=== PATIENT | male | born 1950 | race Caucasian/White ===

== ENCOUNTER 2024-12-10 06:22 | Emergency (ER) | payer OTHER ==
[~2024-12-10] VITALS: Ht 175.3 cm; Wt 74.0 kg
[2024-12-10 06:23] VITALS: O2SAT 98
[2024-12-10 07:32] LABS: BASOPHILS % 0.4 % (0.0-2.0); EOSINOPHILS % 4.1 % (0.0-5.0); HEMATOCRIT. 30.4 % (42.0-52.0); HEMOGLOBIN. 10.1 g/dL (14.0-18.0); LYMPHOCYTES % 41.4 % (20.0-50.0); MEAN CORPUSCULAR HEMOGLOBIN 31.1 pg (28.0-32.0); MEAN CORPUSCULAR HGB CONC 33.4 g/dL (31.0-37.0); MEAN CORPUSCULAR VOLUME 93.2 fL (80.0-94.0); MEAN PLATELET VOLUME 7.1 fl (7.4-10.4); NEUTROPHILS % 46.1 % (40.0-76.0); PLATELET 138 x1000/uL (130-400); RED BLOOD CELL COUNT 3.26 mill/uL (4.7-6.1); RED CELL DISTRIBUTION WIDTH 17.4 % (11.6-14.6); WHITE BLOOD COUNT 3.7 x1000/uL (4.5-11.0)
[2024-12-10] MEDS: SODIUM CHLORIDE 0.9% 1,000 ML IV ONE (07:40)
[2024-12-10 07:46] LABS: CALCIUM 8.7 mg/dL (8.7-10.4); CARBON DIOXIDE 28 mEq/L (21-32); CHLORIDE 108 mEq/L (98-107); POTASSIUM 3.9 mEq/L (3.5-5.1); SODIUM 143 mEq/L (136-145)
[2024-12-10 07:51] LABS: CREATININE 0.9 mg/dL (0.6-1.3); GLUCOSE 103 mg/dL (70-105)
[2024-12-10 07:52] LABS: TROPONIN I HIGH SENSITIVITY 40 ng/L (3.0-53); UREA NITROGEN BLOOD 25 mg/dL (9-23)
[2024-12-10 09:57] LABS: TROPONIN I HIGH SENSITIVITY 40 ng/L (3.0-53)
[2024-12-10 10:09] VITALS: BP 123/58; PULSE 67; RESP 14; TEMP 36.7; O2SAT 98
== END 2024-12-10 10:40 | disposition short-term general hospital (02) ==
LOC: ER 06:22
DX: R07.89 Other chest pain (principal); R54 Age-related physical debility; I11.0 Hypertensive heart disease with heart failure; I50.9 Heart failure, unspecified
CPT/HCPCS: 99285; 96360; 71045; 80048; 83880; 85025; 84484; 36415; 93005; J7030